=== PATIENT | male | born 1990 | race Caucasian/White ===

== ENCOUNTER 2017-06-27 07:56 | Emergency (ER) | payer MEDICAID ==
[~2017-06-27] VITALS: Ht 12.7 cm; Wt 63.6 kg
[~2017-06-27 07:56] MED LIST: CEPH500C5 PO
[2017-06-27] MEDS ORDERED: CefTRIAXone 250MG IM Kit w/LIDOcaine IM ONE (08:40)
[2017-06-27] MEDS ORDERED: DOXY100C43 PO (08:47)
[2017-06-27 09:11] VITALS: BP 138/91
== END 2017-06-27 09:13 | disposition home or self-care (01) ==
LOC: ER 07:57
DX: A64 Unspecified sexually transmitted disease (principal); F15.10 Other stimulant abuse, uncomplicated
CPT/HCPCS: 96372; 99283; J0696

== ENCOUNTER 2018-02-15 18:28 | Emergency (ER) | payer MEDICAID ==
[~2018-02-15] VITALS: Ht 165.1 cm; Wt 61.0 kg
[2018-02-15 18:35] VITALS: BP 110/82
== END 2018-02-15 20:35 | disposition home or self-care (01) ==
LOC: ER 18:28
DX: S02.2XXA Fracture of nasal bones, initial encounter for closed fracture (principal); S20.212A Contusion of left front wall of thorax, initial encounter; F15.90 Other stimulant use, unspecified, uncomplicated; F11.90 Opioid use, unspecified, uncomplicated; Y04.0XXA Assault by unarmed brawl or fight, initial encounter; Y93.89 Activity, other specified; Y92.89 Other specified places as the place of occurrence of the external cause; Y99.9 Unspecified external cause status
CPT/HCPCS: 70486; 71101; 99284

== ENCOUNTER 2018-08-13 21:41 | Emergency (ER) | payer MEDICAID ==
[~2018-08-13] VITALS: Ht 165.1 cm; Wt 58.6 kg
[2018-08-13 23:02] VITALS: BP 104/66
[2018-08-13] MEDS ORDERED: AMOX-580 PO (23:20)
[2018-08-13] MEDS ORDERED: ondansetron 4mg rapidly disintigrating tab PO ONE (23:25)
== END 2018-08-13 23:48 | disposition home or self-care (01) ==
LOC: ER 21:42
DX: S31.113A Laceration without foreign body of abdominal wall, right lower quadrant without penetration into peritoneal cavity, initial encounter (principal); S60.512A Abrasion of left hand, initial encounter; S60.511A Abrasion of right hand, initial encounter; S61.259A Open bite of unspecified finger without damage to nail, initial encounter; F15.90 Other stimulant use, unspecified, uncomplicated; F11.90 Opioid use, unspecified, uncomplicated; Z60.2 Problems related to living alone; Z79.2 Long term (current) use of antibiotics; W54.0XXA Bitten by dog, initial encounter; Y93.89 Activity, other specified; Y92.89 Other specified places as the place of occurrence of the external cause; Y99.8 Other external cause status
CPT/HCPCS: 99283

== ENCOUNTER 2019-04-03 15:34 | Emergency (ER) | payer MEDICAID ==
[~2019-04-03] VITALS: Ht 165.1 cm; Wt 68.2 kg
[2019-04-03 16:03] VITALS: BP 126/86
[2019-04-03] MEDS ORDERED: LIDOcaine 5% patch TP STA (16:33)
[2019-04-03] MEDS ORDERED: ketorolac tromethamine 15mg/ml inj. IM ONE (16:35)
--- NOTE | 2019-04-03 17:18 | NUR ---
PER EDITH VILLA. OK TO REMOVE C COLLAR
== END 2019-04-03 18:10 | disposition home or self-care (01) ==
LOC: ER 15:34
DX: S13.4XXA Sprain of ligaments of cervical spine, initial encounter (principal); M54.6 Pain in thoracic spine; F15.90 Other stimulant use, unspecified, uncomplicated; F11.90 Opioid use, unspecified, uncomplicated; Z60.2 Problems related to living alone; V89.2XXA Person injured in unspecified motor-vehicle accident, traffic, initial encounter; Y93.89 Activity, other specified; Y92.488 Other paved roadways as the place of occurrence of the external cause; Y99.8 Other external cause status
CPT/HCPCS: 72040; 96372; 99283; J1885

== ENCOUNTER 2019-12-26 23:29 | Emergency (ER) | payer MEDICAID ==
[~2019-12-26] VITALS: Ht 165.1 cm; Wt 68.2 kg
[2019-12-26 23:32] VITALS: BP 130/102
[2019-12-27 00:10] LABS: CLARITY,URINE CLEAR (Clear); COLOR,URINE AMBER (Yellow); GLUCOSE, URINE NEGATIVE (Neg); KETONES,URINE NEGATIVE (Neg); LEUKOCYTE ESTERASE ,URINE NEGATIVE (Neg); NITRITES, URINE NEGATIVE (Neg); OCCULT BLOOD,URINE NEGATIVE (Neg); PROTEIN,URINE NEGATIVE (Neg); UA COLLECTION TYPE URINAL
[2019-12-27] MEDS ORDERED: azithromycin 250mg tablet PO ONE (00:10)
[2019-12-27] MEDS ORDERED: CefTRIAXone 250MG IM Kit w/LIDOcaine IM ONE (00:10)
[2019-12-27] MEDS ORDERED: ondansetron 4mg rapidly disintigrating tab PO ONE (00:10)
--- NOTE | 2019-12-31 08:54 | NUR ---
PT CALLED REGARDING LAB RESULTS FROM 12/27/19. VOICEMAIL BOX FULL, UNABLE TO LEAVE [facility].
--- NOTE | 2020-01-05 14:53 | NUR ---
Patient called today due to positive reaction to RPR with no answer unable to leave message. Patient called right back and was educated that he needs to come back to ED for a PCN injection. Patient stated that he would be able to come in sometime today.
== END 2019-12-27 01:12 | disposition home or self-care (01) ==
LOC: ER 23:30
DX: S30.21XA Contusion of penis, initial encounter (principal); N48.89 Other specified disorders of penis; F17.200 Nicotine dependence, unspecified, uncomplicated; F15.90 Other stimulant use, unspecified, uncomplicated; F11.90 Opioid use, unspecified, uncomplicated; Z60.2 Problems related to living alone; Y04.0XXA Assault by unarmed brawl or fight, initial encounter; Y93.89 Activity, other specified; Y99.8 Other external cause status; Y92.89 Other specified places as the place of occurrence of the external cause
CPT/HCPCS: 36415; 81003; 86592; 87491; 87591; 96372; 99283; J0696

== ENCOUNTER 2020-01-08 14:38 | Emergency (ER) | payer MEDICAID ==
[~2020-01-08] VITALS: Ht 165.1 cm; Wt 64.4 kg
--- NOTE | 2020-01-08 15:20 | NUR ---
4 NOREEN REMOVED FROM POSTERIOR HEAD, PT LUISA WELL, PT IS ALSO REQUESTING "PENICILLIN SHOT...YOU GUYS CALLED ME A FEW DAYS AGO AND SAID I HAVE STD"
[2020-01-08] MEDS ORDERED: penicillin G benzathine 1.2 million unit/2ml syringe IM ONE (15:30)
[2020-01-08 16:58] VITALS: BP 113/87
== END 2020-01-08 16:30 | disposition home or self-care (01) ==
LOC: ER 14:38
DX: S01.01XD Laceration without foreign body of scalp, subsequent encounter (principal); Z48.02 Encounter for removal of sutures; F15.90 Other stimulant use, unspecified, uncomplicated; F11.90 Opioid use, unspecified, uncomplicated; Z60.2 Problems related to living alone; W22.8XXD Striking against or struck by other objects, subsequent encounter
CPT/HCPCS: 96372; 99283; J0561

== ENCOUNTER 2020-03-26 04:37 | Emergency (ER) | payer MEDICAID ==
[~2020-03-26] VITALS: Ht 165.1 cm; Wt 68.2 kg
[2020-03-26 04:40] VITALS: BP 122/77
[2020-03-26] MEDS ORDERED: CefTRIAXone 250MG IM Kit w/LIDOcaine IM ONE (05:10)
[2020-03-26] MEDS ORDERED: azithromycin 250mg tablet PO ONE (05:10)
[2020-03-26] MEDS ORDERED: ONDA4TAB6 PO (05:17)
[2020-03-26] MEDS ORDERED: DOXY100T56 PO (05:17)
== END 2020-03-26 05:22 | disposition home or self-care (01) ==
LOC: ER 04:37
DX: A64 Unspecified sexually transmitted disease (principal); F15.10 Other stimulant abuse, uncomplicated; F14.10 Cocaine abuse, uncomplicated; Z79.899 Other long term (current) drug therapy
CPT/HCPCS: 36415; 87491; 87591; 96372; 99283; J0696; 99284; 99285

== ENCOUNTER 2020-07-05 21:34 | Emergency (ER) | payer MEDICAID ==
[~2020-07-05] VITALS: Ht 165.1 cm; Wt 66.4 kg
[~2020-07-05 21:34] MED LIST changes: -CEPH500C5 PO; +ONDA4TAB6 PO
[2020-07-05 21:54] VITALS: BP 117/81
== END 2020-07-05 22:40 | disposition home or self-care (01) ==
LOC: ER 21:35
DX: R05 Cough (principal); Z20.822 Contact with and (suspected) exposure to COVID-19; F15.90 Other stimulant use, unspecified, uncomplicated; F11.90 Opioid use, unspecified, uncomplicated; Z60.2 Problems related to living alone; Z79.899 Other long term (current) drug therapy
CPT/HCPCS: 36415; 87635; 99283

== ENCOUNTER 2021-02-18 05:51 | Emergency (ER) | payer MEDICAID ==
[~2021-02-18] VITALS: Ht 172.7 cm; Wt 75.0 kg
[2021-02-18] MEDS ORDERED: tetanus & diphtheria toxoid (Td) vaccine 0.5ml IMVAC ONE (06:20)
[2021-02-18] MEDS ORDERED: TETanus/Pertussis (Acell)/Diphther VAC/PF (Tdap-Adult) 0.5ml syringe IMVAC ONE (06:25)
--- NOTE | 2021-02-18 06:36 | NUR ---
police at bedside .director music at bedside to take pt to ct scan.
[2021-02-18] MEDS ORDERED: AMOX-580 PO (07:12)
[2021-02-18 08:10] VITALS: BP 108/68
[2021-02-18] MEDS ORDERED: tranexamic acid 100mg/ml inj. TP ONE (08:30)
== END 2021-02-18 08:13 ==
LOC: ER 05:51
DX: S20.412A Abrasion of left back wall of thorax, initial encounter (principal); F15.90 Other stimulant use, unspecified, uncomplicated; F11.90 Opioid use, unspecified, uncomplicated; Z20.3 Contact with and (suspected) exposure to rabies; Z60.2 Problems related to living alone; Z79.2 Long term (current) use of antibiotics; Z79.899 Other long term (current) drug therapy; M54.2 Cervicalgia; W54.0XXA Bitten by dog, initial encounter; Y93.89 Activity, other specified; Y92.89 Other specified places as the place of occurrence of the external cause; Y99.8 Other external cause status
CPT/HCPCS: 70450; 71250; 72125; 90471; 90715; 99285

== ENCOUNTER 2021-02-25 14:22 | Emergency (ER) | payer MEDICAID, OTHER ==
[~2021-02-25] VITALS: Ht 165.1 cm; Wt 65.9 kg
[~2021-02-25 14:22] MED LIST changes: +AMOX-580 PO
[2021-02-25 14:29] VITALS: BP 151/133
== END 2021-02-25 16:54 ==
LOC: EEVIPCON 14:22 → ER 14:22
DX: S06.0X0A Concussion without loss of consciousness, initial encounter (principal); M54.2 Cervicalgia; R11.2 Nausea with vomiting, unspecified; H53.8 Other visual disturbances; F15.90 Other stimulant use, unspecified, uncomplicated; F11.90 Opioid use, unspecified, uncomplicated; Z79.899 Other long term (current) drug therapy; W06.XXXA Fall from bed, initial encounter; Y93.89 Activity, other specified; Y92.89 Other specified places as the place of occurrence of the external cause; Y99.8 Other external cause status
CPT/HCPCS: 70450; 72125; 99285

== ENCOUNTER 2021-04-26 21:37 | Emergency (ER) | payer MEDICAID, OTHER ==
[~2021-04-26] VITALS: Ht 165.1 cm; Wt 65.9 kg
[~2021-04-26 21:37] MED LIST changes: -AMOX-580 PO
[2021-04-26] MEDS ORDERED: SULF1TAB49 PO (22:34)
[2021-04-26] MEDS ORDERED: sulfamethoxazole/trimethoprim DS (800/160mg) tablet PO ONE (22:35)
--- NOTE | 2021-04-26 22:47 | NUR ---
ATTEMPTED TO D/C AND MEDICATE PT FOR D/C AND PT NOT IN LOBBY. CALLED PT PHONE NUMBER LISTED IN CHART AND VOICE MAIL STATES "CALL REJECTED".
[2021-04-26 23:03] VITALS: BP 145/98
--- NOTE | 2021-04-26 23:03 | NUR ---
PT RETURNED BACK TO LOBBY
== END 2021-04-26 23:05 | disposition home or self-care (01) ==
LOC: ER 21:38
DX: L03.116 Cellulitis of left lower limb (principal); L03.115 Cellulitis of right lower limb; F15.90 Other stimulant use, unspecified, uncomplicated; F11.90 Opioid use, unspecified, uncomplicated; Z60.2 Problems related to living alone; Z79.2 Long term (current) use of antibiotics; Z79.899 Other long term (current) drug therapy
CPT/HCPCS: 99283

== ENCOUNTER 2021-08-14 13:30 | Emergency (ER) | payer MEDICAID ==
[~2021-08-14] VITALS: Ht 165.1 cm; Wt 68.2 kg
[2021-08-14 13:39] VITALS: BP 130/89
[2021-08-14] MEDS ORDERED: SULF1TAB49 PO (15:04)
[2021-08-14] MEDS ORDERED: CEPH-585 PO (15:04)
== END 2021-08-14 15:30 | disposition home or self-care (01) ==
LOC: ER 13:31
DX: L08.89 Other specified local infections of the skin and subcutaneous tissue (principal); F17.210 Nicotine dependence, cigarettes, uncomplicated; F15.10 Other stimulant abuse, uncomplicated; F11.10 Opioid abuse, uncomplicated
CPT/HCPCS: 99283

== ENCOUNTER 2021-12-10 16:16 | Emergency (ER) | payer MEDICAID ==
[~2021-12-10] VITALS: Ht 165.1 cm; Wt 68.2 kg
[~2021-12-10 16:16] MED LIST changes: +CEPH-585 PO
[2021-12-10 16:59] VITALS: BP 112/73
[2021-12-10] MEDS ORDERED: buprenorphine/naloxone 8MG-2MG SUBlingual film SL STA (17:03)
[2021-12-10] MEDS ORDERED: BUPR1FIL3 SL (17:04)
== END 2021-12-10 17:12 | disposition home or self-care (01) ==
LOC: ER 16:17
DX: S01.511A Laceration without foreign body of lip, initial encounter (principal); F15.10 Other stimulant abuse, uncomplicated; F11.23 Opioid dependence with withdrawal; Z79.899 Other long term (current) drug therapy; F11.988 Opioid use, unspecified with other opioid-induced disorder; Y08.89XA Assault by other specified means, initial encounter; Y93.89 Activity, other specified; Y92.89 Other specified places as the place of occurrence of the external cause; Y99.8 Other external cause status
CPT/HCPCS: 40650; 99283; 99284

== ENCOUNTER 2022-04-20 10:17 | Emergency (ER) | payer MEDICAID ==
[~2022-04-20] VITALS: Ht 165.1 cm; Wt 59.1 kg
--- NOTE | 2022-04-20 10:28 | NUR ---
Met with patient for Substance use. Patient interested in Bridge Program. Patient has been substance free for two days and wants to start Suboxone. I talked to Beny. He will start patient on Suboxone and I will bridge patient to [facility] clinic. Gave patient my number to call me with any questions.
[2022-04-20 10:33] VITALS: BP 115/70
[2022-04-20] MEDS ORDERED: BUPR1FIL3 SL (11:03)
== END 2022-04-20 11:25 | disposition home or self-care (01) ==
LOC: ER 10:17
DX: F11.10 Opioid abuse, uncomplicated (principal); Z79.891 Long term (current) use of opiate analgesic
CPT/HCPCS: 99283

== ENCOUNTER 2022-09-06 14:20 | Emergency (ER) | payer MEDICAID ==
[~2022-09-06] VITALS: Ht 165.1 cm; Wt 68.2 kg
[~2022-09-06 14:20] MED LIST changes: -CEPH-585 PO
[2022-09-06 15:46] VITALS: BP 105/58
[2022-09-06] MEDS ORDERED: dexamethasone sod phosphate 10mg/ml inj PO STA (16:11)
[2022-09-06] MEDS ORDERED: PRED20TA PO (16:14)
[2022-09-06] MEDS ORDERED: CEPH-585 PO (16:14)
[2022-09-06] MEDS ORDERED: SULF1TAB45 PO (16:14)
[2022-09-06] MEDS ORDERED: sulfamethoxazole/trimethoprim DS (800/160mg) tablet PO ONE (16:15)
[2022-09-06] MEDS ORDERED: cephalexin 250mg capsule PO ONE (16:15)
[2022-09-06] MEDS ORDERED: potassium Cl 20 mEq SR tablet PO STA (16:21)
== END 2022-09-06 16:31 | disposition home or self-care (01) ==
LOC: ER 14:20
DX: L03.116 Cellulitis of left lower limb (principal); L03.115 Cellulitis of right lower limb; L23.7 Allergic contact dermatitis due to plants, except food; F15.90 Other stimulant use, unspecified, uncomplicated; F11.90 Opioid use, unspecified, uncomplicated; Z60.2 Problems related to living alone; Z79.899 Other long term (current) drug therapy
CPT/HCPCS: 99284; J1100; A6449

== ENCOUNTER 2025-04-14 15:13 | Emergency (ER) | payer MEDICAID ==
[~2025-04-14] VITALS: Ht 167.6 cm; Wt 63.1 kg
[2025-04-14 15:20] VITALS: BP 137/83; PULSE 86; RESP 16; TEMP 97.8; O2SAT 96
--- NOTE | 2025-04-14 15:28 | Physician Documentation ---
HPI ~ General Chief Complaint: Medication Request Stated Complaint: MED REQUEST Time Seen by MD: 15:35 Primary Medical Doctor: jerad huang History of Present Illness HPI Comments 34-year-old male who presents to the ED he is requesting Suboxone prescription secondary to chronic opioid use disorder. He states he got out of [facility] in his January and was provided a Suboxone script previously but now he is out he is staying at and about time recovering facility. but does not have a current provider Without Medications Since: Apr 14, 2025 Medication Reconciliation Allergies: Coded Allergies: No Known Allergies (Unverified , 04/14/25) Scheduled Buprenorphine HCl/Naloxone HCl (Suboxone 12 mg-3 mg Sl Film), 1 STRIP SL DAILY Ondansetron Hcl (Zofran), 1 TAB PO Q6H Past Medical History Past Medical History: No Pertinent History Past Surgical History: no surgical history Alcohol Use: None Drug Use: methamphetamine, heroin, other Lives with: Alone Lives In: Home Occupation: employed Review of Systems All Other Systems at this time: Reviewed and Negative ROS As stated above in the HPI, otherwise all systems are reviewed and negative. Physical Exam Physical Exam Vital Signs: Temperature: 97.8, Source: Temporal, Heart Rate: 86, Respiratory Rate: 16, BP: 137/83, Pulse Oximetry: 96, Weight: 63.100 Oxygen Flow Rate: 0 Physical Exam General: Alert, no apparent distress. Respiratory: Lungs clear, no respiratory distress. Chest: No accessory muscle use. Cardiovascular: Regular rate and rhythm, no murmurs. Gastrointestinal: Soft, nontender, nondistended. Bowels sounds present. Neurologic: Oriented x4. Psychiatric: Normal mood and affect. Skin: Normal color, warm and dry. No edema, no ecchymosis. Progress Results/Orders Results/Orders Vital Signs 04/14/25 15:20 Temp 97.8 Pulse 86 Resp 16 B/P (MAP) 137/83 Pulse Ox 96 O2 Flow Rate 0 Medical Decision Making Additional information obtaine: old records Findings refilled patient's medication as requested for a short prescription he will need to follow up with the primary care for further evaluation Differential Dx:Considerations: Include: Adverse circumstances, Economic, Psychosocial, Medical services unavail., Medication refill, Medication non- compliance, Other Departure Disposition: HOME / SELF CARE / HOMELESS Impression: Primary Impression: General medical exam Additional Impression: Opiate withdrawal Condition: Improved Discharge Instructions: Medicine Refill at the Emergency Department Referrals: NO PRIMARY CARE PROVIDER (PCP) Prescriptions Buprenorphine HCl/Naloxone HCl (Suboxone 12 mg-3 mg Sl Film) 12 Mg-3 Mg Film 1 STRIP SL DAILY for 7 Days, #7 STRIP 0 Refills Prov: RL LUONG NP 04/14/25 Education Educated: Patient Educated regarding: diagnosis Signature Scribe Signature: u Attestation: Scribed for Rl Luong Loan Funder by Rl Torres NP . 04/14/25 23:25 RL LUONG NP Apr 14, 2025 15:28
[2025-04-14] MEDS ORDERED: BUPR1FIL7 SL (15:29)
== END 2025-04-14 15:52 | disposition home or self-care (01) ==
LOC: ER 15:14
DX: Z00.00 Encounter for general adult medical examination without abnormal findings (principal); F11.23 Opioid dependence with withdrawal; F15.90 Other stimulant use, unspecified, uncomplicated; F19.90 Other psychoactive substance use, unspecified, uncomplicated; Z79.899 Other long term (current) drug therapy; Z60.2 Problems related to living alone
CPT/HCPCS: 99282